=== PATIENT | female | born 1935 | race Caucasian/White ===

== ENCOUNTER 2017-08-03 12:29 | Emergency (ER) | payer OTHER ==
[~2017-08-03] VITALS: Ht 152.4 cm; Wt 75.8 kg
[2017-08-03 13:09] LABS: APPEARANCE CLEAR ((CLEAR)); BILIRUBIN NEGATIVE; BLOOD NEGATIVE; COLOR YELLOW ((YELLOW)); GLUCOSE (STRIP) NEGATIVE; KETONES NEGATIVE; LEUKOCYTES TRACE; NITRITE NEGATIVE; PROTEIN (STRIP) NEGATIVE; SPECIFIC GRAVITY 1.012 (1.000-1.030); UROBILINOGEN 0.2 MG/DL (0.2-1.0)
[2017-08-03 13:15] LABS: BACTERIA 1+ /HPF; EPITHELIAL CELLS RARE /HPF; MUCUS TRACE /LPF; RED BLOOD CELLS 0-5 /HPF (0-5); UCUL ADDED? NO; WHITE BLOOD CELLS 0-5 /HPF (0-5)
[2017-08-03 13:38] LABS: HEMATOCRIT 38.5 % (36.0-46.0); HEMOGLOBIN 13.2 G/DL (11.9-15.5); MCH 32.1 PG (29.0-34.0); MCHC 34.3 G/DL (30.0-36.0); MCV 93.7 FL (83-99); PLATELET COUNT 257 K/uL (156-360); RBC DIS.WIDTH-CV 12.7 % (11.8-14.6); RBC DIS.WIDTH-SD 43.9 % (39-53); RED BLOOD COUNT 4.11 M/uL (3.80-5.20); WHITE BLOOD COUNT 7.8 K/uL (4.1-10.2)
[2017-08-03 13:51] LABS: ALBUMIN 4.1 g/dL (3.2-4.8); CHLORIDE 106 mEq/L (99-109); POTASSIUM 3.9 mEq/L (3.7-5.4); SODIUM 139 mEq/L (136-147)
[2017-08-03 13:54] LABS: GLUCOSE 153 mg/dL (70-99); TOTAL PROTEIN 7.3 g/dL (6.4-8.3)
[2017-08-03 13:56] LABS: TOTAL BILIRUBIN 0.3 mg/dL (0.0-1.0)
[2017-08-03 13:57] LABS: ALKALINE PHOSPHATASE 68 IU/L (3-129); CREATININE 0.8 mg/dL (0.6-1.3); GFR ESTIMATE (CALCULATED) > 59 mL/min/
[2017-08-03 13:58] LABS: UREA NITROGEN (BUN) 15 mg/dL (9-23)
[2017-08-03 13:59] LABS: AST (GOT) 18 IU/L (2-34)
[2017-08-03 14:00] LABS: ALT (GPT) 13 IU/L (3-49)
[2017-08-03 14:38] LABS: TROP-I INTERPRETATION NEGATIVE; TROPONIN-I < 0.01 ng/mL (0.0-0.30)
[2017-08-03 17:46] VITALS: BP 166/114
== END 2017-08-03 18:05 | disposition home or self-care (01) ==
LOC: EME 12:29
PROVIDERS: Emergency Medicine
DX: F43.9 Reaction to severe stress, unspecified (principal)
CPT/HCPCS: 80053; 81003; 82948; 84484; 85027; 93005; 99281; 99285; J7030